=== PATIENT | male | born 1975 | race Caucasian/White ===

== ENCOUNTER 2018-05-24 18:08 | Emergency (ER) | payer BC ==
[2018-05-24] MEDS: IBUPROFEN 600 MG TAB PO (21:49)
== END 2018-05-24 21:52 | disposition home or self-care (01) ==
LOC: FTE 18:08
DX: L03.211 Cellulitis of face (principal); F17.210 Nicotine dependence, cigarettes, uncomplicated; R40.2412 Glasgow coma scale score 13-15, at arrival to emergency department
CPT/HCPCS: 99283

== ENCOUNTER 2018-05-27 12:03 | Emergency (ER) | payer BC ==
[2018-05-27] MEDS: DIPHTH/TET/ACEL PERTUSS (ADULT) 0.5 ML VIAL IM* (13:37)
== END 2018-05-27 13:47 | disposition home or self-care (01) ==
LOC: FTE 12:03
DX: Z48.01 Encounter for change or removal of surgical wound dressing (principal); Z87.891 Personal history of nicotine dependence; Z23 Encounter for immunization
CPT/HCPCS: 90471; 90715; 99283-25

== ENCOUNTER 2018-09-10 11:36 | Emergency (ER) | payer BC | END 2018-09-10 12:44 | disposition home or self-care (01) | LOC: FTE 11:36 | DX: L08.9 Local infection of the skin and subcutaneous tissue, unspecified (principal); A49.9 Bacterial infection, unspecified; Z87.891 Personal history of nicotine dependence | CPT/HCPCS: 99283 ==

== ENCOUNTER 2019-05-07 01:43 | Emergency (ER) | payer BC ==
[2019-05-07] MEDS: GUAIFENESIN/CODEINE 5ML CUP PO (02:28)
== END 2019-05-07 02:57 | disposition home or self-care (01) ==
LOC: FTE 01:43
DX: J40 Bronchitis, not specified as acute or chronic (principal)
CPT/HCPCS: 99283

== ENCOUNTER 2019-05-18 21:43 | Emergency (ER) | payer BC ==
[2019-05-19] MEDS: GUAIFENESIN 20 MG/ML 5ML CUP PO (01:26)
== END 2019-05-19 01:30 | disposition home or self-care (01) ==
LOC: FTE 21:43
DX: R05 Cough (principal)
CPT/HCPCS: 71046; 99283-25